=== PATIENT | female | born 1940 | race Caucasian/White ===

== ENCOUNTER 2023-06-02 15:10 | Inpatient (IN) | payer MEDICARE, BC ==
[~2023-06-02] VITALS: Ht 160 cm; Wt 47.6 kg
[2023-06-02] MEDS ORDERED: MEMA10TA PO (15:39)
[2023-06-02] MEDS ORDERED: AMLO-212 PO (15:39)
[2023-06-02] MEDS ORDERED: EZET10TA15 PO (15:39)
[2023-06-02] MEDS ORDERED: ONDANSETRON 4 MG/2 ML VIAL IV ONE (15:45)
[2023-06-02] MEDS ORDERED: IV NORMAL SALINE 500 ML BAG IV ONE (15:45)
[2023-06-02] MEDS ORDERED: MORPHINE SULFATE 2 MG/1 ML DISP.SYRIN IV ONE (15:45)
[2023-06-02] MEDS ORDERED: MORPHINE SULFATE 4 MG/1 ML DISP.SYRIN ONE (16:01)
[2023-06-02] MEDS ORDERED: ONDANSETRON 4 MG/2 ML VIAL ONE (16:01)
[2023-06-02 16:07] LABS: BASOPHILS % (AUTO) 0.3 % (0.0-2.0); EOSINOPHILS % (AUTO) 0.3 % (0.0-7.0); HEMATOCRIT 40.7 % (31.2-41.9); HEMOGLOBIN 13.4 g/dL (10.9-14.3); LYMPHOCYTES # (AUTO) 1.1 K/uL (0.8-4.8); MEAN CORPUSCULAR HEMOGLOBIN 30.6 uug (24.7-32.8); MEAN CORPUSCULAR HGB CONC 33 g/dL (32.3-35.6); MEAN CORPUSCULAR VOLUME 93.1 fL (75.5-95.3); MONOCYTES # (AUTO) 0.8 K/uL (0.1-1.30); MONOCYTES % (AUTO) 5.4 % (0.0-11.0); NEUTROPHILS # (AUTO) 13.5 K/uL (1.8-8.9); PLATELET COUNT (AUTO) 253 K/uL (179-408); RED BLOOD CELL COUNT(AUTO) 4.37 MIL/uL (3.63-4.92); RED CELL DISTRIBUTION WIDTH 14.2 % (12.3-17.7); WHITE BLOOD COUNT (AUTO) 15.5 K/uL (3.8-11.8)
[2023-06-02 16:18] LABS: DIFFERENTIAL COMMENT 1
[2023-06-02 16:25] LABS: CALCIUM 10.1 mg/dL (8.5-10.1); CREATININE 0.9 mg/dL (0.6-1.3); POTASSIUM 3.5 mmol/L (3.5-5.1)
[2023-06-02 16:51] LABS: *BILIRUBIN,URIN NEGATIVE (NEGATIVE); *BLOOD, URINE NEGATIVE (NEGATIVE); *CLARITY,URINE CLEAR (CLEAR); *COLOR,URINE YELLOW (YELLOW); *PROTEIN,URINE NEGATIVE (NEGATIVE); PH,URINE 7.5 (5.0-8.0); UGLUCOSE NEGATIVE (NEGATIVE)
[2023-06-02 16:52] LABS: *KETONES,URINE NEGATIVE (NEGATIVE); *UROBILINOGEN,URINE 0.2 E.U./dl (NORMAL); LEUKOCYTE ESTERASE ,URINE 1+ (NEGATIVE); NITRITE, URINE NEGATIVE (NEGATIVE)
[2023-06-02 17:29] LABS: RBC,URINE 0-3 /HPF (0-3)
[2023-06-02 17:50] LABS: ALBUMIN 3.8 g/dL (3.4-5.0); BILIRUBIN,DIRECT 0.1 mg/dL (0.0-0.2); BILIRUBIN,TOTAL 0.3 mg/dL (0.2-1.0); TOTAL PROTEIN, SERUM 7.1 g/dL (6.4-8.2)
[2023-06-02] MEDS: CEFTRIAXONE 1 G in IV DEXTROSE 5% 50 ML IV SCH (19:30)
[2023-06-02] MEDS ORDERED: ONDANSETRON 4 MG/2 ML VIAL IV PRN (19:30)
[2023-06-02] MEDS ORDERED: ACETAMINOPHEN 650 MG SUPP.RECT RC PRN (19:30)
[2023-06-02 20:00] VITALS: BP 107/56; TEMP 97.5; O2SAT 95
[2023-06-02] MEDS ORDERED: CEFTRIAXONE /D5W 50ML IVPB **ER PYXIS IV ONE (20:27)
[2023-06-02] MEDS ORDERED: IV D5W-0.45% NS +20 KCL 1,000 ML IV ONE (20:28)
[2023-06-02] MEDS: ENOXAPARIN SODIUM 40 MG/0.4 ML DISP.SYRIN SQ SCH (21:45)
[2023-06-02] MEDS: POTASSIUM CHLORIDE 20 MEQ in IV D5 1/2 NS 1000 ML 1,000 ML IV PRN (21:48)
[2023-06-02] MEDS: MORPHINE SULFATE 4 MG/1 ML DISP.SYRIN IV PRN (22:02)
[2023-06-03 04:00] VITALS: BP 123/66; TEMP 97.7; O2SAT 97
[2023-06-03 07:40] LABS: BASOPHILS % (AUTO) 0.2 % (0.0-2.0); EOSINOPHILS % (AUTO) 0.1 % (0.0-7.0); HEMOGLOBIN 11.5 g/dL (10.9-14.3); LYMPHOCYTES % (AUTO) 7.9 % (20.5-51.5); MEAN CORPUSCULAR HEMOGLOBIN 31.2 uug (24.7-32.8); MEAN CORPUSCULAR HGB CONC 34 g/dL (32.3-35.6); MEAN CORPUSCULAR VOLUME 92.6 fL (75.5-95.3); MONOCYTES # (AUTO) 0.8 K/uL (0.1-1.30); MONOCYTES % (AUTO) 6.7 % (0.0-11.0); NEUTROPHILS # (AUTO) 10.2 K/uL (1.8-8.9); NEUTROPHILS % (AUTO) 85.1 % (38.5-71.5); PLATELET COUNT (AUTO) 224 K/uL (179-408); RED BLOOD CELL COUNT(AUTO) 3.67 MIL/uL (3.63-4.92); RED CELL DISTRIBUTION WIDTH 14.1 % (12.3-17.7)
[2023-06-03 07:53] LABS: DIFFERENTIAL COMMENT 1
[2023-06-03 07:59] LABS: THYROID STIMULATING HORMONE 0.523 mIU/mL (0.358-3.740)
[2023-06-03 08:13] LABS: ALBUMIN 3.3 g/dL (3.4-5.0); BILIRUBIN,TOTAL 0.5 mg/dL (0.2-1.0); CALCIUM 8.5 mg/dL (8.5-10.1); CREATININE 0.6 mg/dL (0.6-1.3); MAGNESIUM 2.3 mg/dL (1.8-2.4); POTASSIUM 3.8 mmol/L (3.5-5.1); TOTAL PROTEIN, SERUM 6.5 g/dL (6.4-8.2)
[2023-06-03] MEDS: PANTOPRAZOLE SODIUM 40 MG VIAL IV SCH (08:47)
[2023-06-03] MEDS: POTASSIUM CHLORIDE 20 MEQ in IV D5 1/2 NS 1000 ML 1,000 ML IV PRN (10:53)
[2023-06-03 11:34] VITALS: BP 130/57; TEMP 98.8; O2SAT 95
[2023-06-03] MEDS: DOCUSATE SODIUM 100 MG CAPSULE PO SCH ×2 (12:50→21:43)
[2023-06-03 15:38] VITALS: BP 139/70; TEMP 98.7; O2SAT 95
[2023-06-03] MEDS: MORPHINE SULFATE 4 MG/1 ML DISP.SYRIN IV PRN (17:58)
[2023-06-03 20:00] VITALS: BP 142/74; TEMP 98.6; O2SAT 96
[2023-06-03] MEDS: CEFTRIAXONE 1 G in IV DEXTROSE 5% 50 ML IV SCH (20:10)
[2023-06-03] MEDS: ENOXAPARIN SODIUM 40 MG/0.4 ML DISP.SYRIN SQ SCH (21:44)
[2023-06-04] VITALS (8 sets, daily range): BP systolic 90–151; BP diastolic 47–77; TEMP 96.7–98.2; O2SAT 94–99
[2023-06-04] MEDS: POTASSIUM CHLORIDE 20 MEQ in IV D5 1/2 NS 1000 ML 1,000 ML IV PRN ×2 (01:12→17:57)
[2023-06-04] MEDS ORDERED: BISACODYL 10 MG SUPP.RECT RC PRN (05:15)
[2023-06-04] MEDS: DOCUSATE SODIUM 100 MG CAPSULE PO SCH ×2 (09:00→20:18)
[2023-06-04] MEDS: PANTOPRAZOLE SODIUM 40 MG VIAL IV SCH (09:43)
[2023-06-04] MEDS ORDERED: FENTANYL CITRATE 250 MCG/5 ML AMPUL ONE (12:56)
[2023-06-04] MEDS ORDERED: ROCURONIUM BROMIDE 50 MG/5 ML VIAL ONE (12:56)
[2023-06-04] MEDS ORDERED: BUPIVACAINE 0.25% 30 ML VIAL ONE (12:57)
[2023-06-04] MEDS ORDERED: METOCLOPRAMIDE HCL 10 MG/2 ML VIAL ONE (13:46)
[2023-06-04] MEDS ORDERED: GLYCOPYRROLATE 0.4 MG/2 ML VIAL ONE (13:46)
[2023-06-04] MEDS ORDERED: CEFAZOLIN 1 G VIAL ONE (13:46)
[2023-06-04] MEDS ORDERED: ONDANSETRON 4 MG/2 ML VIAL ONE ×2 (13:46→15:35)
[2023-06-04] MEDS ORDERED: LIDOCAINE-MPF 2% 5 ML VIAL ONE (13:46)
[2023-06-04] MEDS ORDERED: PROPOFOL 200 MG/20 ML BOTTLE ONE (13:46)
[2023-06-04] MEDS ORDERED: NEOSTIGMINE METHYLSULFATE 10 MG/10 ML VIAL ONE (13:46)
[2023-06-04] MEDS ORDERED: VANCOMYCIN 1000 MG VIAL ONE (14:13)
[2023-06-04] MEDS ORDERED: HYDROCODONE/APAP 10-325 MG TABLET PO PRN (15:30)
[2023-06-04] MEDS ORDERED: HYDROMORPHONE 1 MG/1 ML DISP.SYRIN ONE (15:36)
[2023-06-04] MEDS: CEFAZOLIN 1 G in IV DEXTROSE 5% 50 ML IV SCH (21:22)
[2023-06-05 00:13] VITALS: BP 105/60; TEMP 97.6; O2SAT 97
[2023-06-05] MEDS: MORPHINE SULFATE 4 MG/1 ML DISP.SYRIN IV PRN ×2 (03:23→09:21)
[2023-06-05 04:11] VITALS: BP 104/55; TEMP 97.9; O2SAT 93
[2023-06-05 04:24] VITALS: BP 104/55; TEMP 97.9; O2SAT 95
[2023-06-05] MEDS: CEFAZOLIN 1 G in IV DEXTROSE 5% 50 ML IV SCH ×2 (05:49→13:57)
[2023-06-05 07:50] LABS: BASOPHILS % (AUTO) 0.2 % (0.0-2.0); EOSINOPHILS # (AUTO) 0.1 K/uL (0.0-0.7); EOSINOPHILS % (AUTO) 0.4 % (0.0-7.0); HEMATOCRIT 32.6 % (31.2-41.9); HEMOGLOBIN 10.8 g/dL (10.9-14.3); LYMPHOCYTES # (AUTO) 1.2 K/uL (0.8-4.8); LYMPHOCYTES % (AUTO) 10.3 % (20.5-51.5); MEAN CORPUSCULAR HEMOGLOBIN 31.2 uug (24.7-32.8); MEAN CORPUSCULAR HGB CONC 33 g/dL (32.3-35.6); MEAN CORPUSCULAR VOLUME 93.9 fL (75.5-95.3); MONOCYTES % (AUTO) 8.7 % (0.0-11.0); NEUTROPHILS # (AUTO) 9.5 K/uL (1.8-8.9); NEUTROPHILS % (AUTO) 80.4 % (38.5-71.5); PLATELET COUNT (AUTO) 197 K/uL (179-408); RED BLOOD CELL COUNT(AUTO) 3.47 MIL/uL (3.63-4.92); RED CELL DISTRIBUTION WIDTH 13.8 % (12.3-17.7); WHITE BLOOD COUNT (AUTO) 11.8 K/uL (3.8-11.8)
[2023-06-05 07:55] LABS: DIFFERENTIAL COMMENT 1
[2023-06-05 08:11] LABS: CALCIUM 8.5 mg/dL (8.5-10.1); CARBON DIOXIDE 26 mmol/L (21-32); CHLORIDE 102 mmol/L (98-107); CREATININE 0.7 mg/dL (0.6-1.3); GLUCOSE 104 mg/dL (74-106); MAGNESIUM 2.2 mg/dL (1.8-2.4); PHOSPHOROUS 2.7 mg/dL (2.5-4.9); POTASSIUM 4.4 mmol/L (3.5-5.1); SODIUM SERUM 137 mmol/L (136-145); UREA NITROGEN, BLOOD 11 mg/dL (7-18)
[2023-06-05] MEDS: DOCUSATE SODIUM 100 MG CAPSULE PO SCH (09:20)
[2023-06-05] MEDS: PANTOPRAZOLE SODIUM 40 MG VIAL IV SCH (09:20)
[2023-06-05] MEDS: POTASSIUM CHLORIDE 20 MEQ in IV D5 1/2 NS 1000 ML 1,000 ML IV PRN (09:22)
[2023-06-05 11:30] VITALS: BP 109/54; TEMP 98.4; O2SAT 96
[2023-06-05] MEDS ORDERED: MEMANTINE HCL 10 MG TABLET PO SCH (11:30)
[2023-06-05] MEDS ORDERED: BISA10SU95 RC (17:58)
[2023-06-05] MEDS ORDERED: ACET650S13 RC (17:58)
[2023-06-05] MEDS ORDERED: MORP4CAR IV (17:58)
[2023-06-05] MEDS ORDERED: DOCU100T2 PO (17:58)
[2023-06-05] MEDS ORDERED: PANT40TA49 PO (17:58)
[2023-06-05] MEDS ORDERED: HYDR-3980 PO (17:58)
[2023-06-05] MEDS ORDERED: ONDA4VIA23 IJ (17:58)
[2023-06-05] MEDS ORDERED: ENOX40DI SQ (17:58)
[2023-06-05] MEDS ORDERED: ENOXAPARIN SODIUM 40 MG/0.4 ML DISP.SYRIN SQ SCH (21:00)
[2023-06-06] MEDS ORDERED: PANTOPRAZOLE SODIUM 40 MG TABLET.DR PO SCH (07:00)
[2023-06-06] MEDS ORDERED: EZETIMIBE 10 MG TABLET PO SCH (09:00)
[2023-06-06] MEDS ORDERED: AMLODIPINE 5 MG TABLET PO SCH (09:00)
== END 2023-06-05 15:53 | DRG 522 ==
LOC: ER 15:10 → MEDSURG3 17:53 → TELE3 06-03 09:04
PROVIDERS: ADMIT Internal Medicine; ATTEND Internal Medicine
PROC: 0SRR0JA Replacement of Right Hip Joint, Femoral Surface with Synthetic Substitute, Uncemented, Open Approach (ICD-10-PCS; principal; 2023-06-04)
DX: M80.051A Age-related osteoporosis with current pathological fracture, right femur, initial encounter for fracture (principal); N39.0 Urinary tract infection, site not specified; Z68.1 Body mass index [BMI] 19.9 or less, adult; F03.A0 Unspecified dementia, mild, without behavioral disturbance, psychotic disturbance, mood disturbance, and anxiety; I70.0 Atherosclerosis of aorta; M19.011 Primary osteoarthritis, right shoulder; G89.11 Acute pain due to trauma; E78.5 Hyperlipidemia, unspecified; I10 Essential (primary) hypertension; M51.36 Other intervertebral disc degeneration, lumbar region; R63.6 Underweight; W01.0XXA Fall on same level from slipping, tripping and stumbling without subsequent striking against object, initial encounter; Y92.009 Unspecified place in unspecified non-institutional (private) residence as the place of occurrence of the external cause; Z88.2 Allergy status to sulfonamides; E11.9 Type 2 diabetes mellitus without complications; E78.00 Pure hypercholesterolemia, unspecified; Z98.49 Cataract extraction status, unspecified eye; Z79.899 Other long term (current) drug therapy
CPT/HCPCS: 36415; 71045; 72170; 73501; 73502; 83550; 83735; 84100; 84443; 84484; 85025; 85730; 93005; 93307; A4649; A4663; C9113; G0378; J0690; J0696; J1170; J1650; J2270; J2405; J2765; J3010; J3370; J3480; J3490; J7040

== ENCOUNTER 2023-06-05 16:14 | Inpatient (IN) | payer MEDICARE, BC ==
[~2023-06-05] VITALS: Ht 160 cm; Wt 47.6 kg
[~2023-06-05 16:14] MED LIST: AMLO-212 PO; EZET10TA15 PO; MEMA10TA PO
[2023-06-05 16:30] VITALS: BP 113/56; TEMP 98.6; O2SAT 96
[2023-06-05] MEDS: NITROFURANTOIN/NITROFURAN MAC 100 MG CAPSULE PO SCH (17:53)
[2023-06-05] MEDS ORDERED: BISA10SU95 RC (17:58)
[2023-06-05] MEDS ORDERED: MORP4CAR IV (17:58)
[2023-06-05] MEDS ORDERED: ONDA4VIA23 IJ (17:58)
[2023-06-05] MEDS ORDERED: HYDR-3980 PO (17:58)
[2023-06-05] MEDS ORDERED: DOCU100T2 PO (17:58)
[2023-06-05] MEDS ORDERED: ACET650S13 RC (17:58)
[2023-06-05] MEDS ORDERED: ENOX40DI SQ (17:58)
[2023-06-05] MEDS ORDERED: PANT40TA49 PO (17:58)
[2023-06-05] MEDS ORDERED: MORPHINE SULFATE 4 MG/1 ML DISP.SYRIN IV PRN (18:00)
[2023-06-05] MEDS ORDERED: ACETAMINOPHEN 650 MG SUPP.RECT RC PRN (18:00)
[2023-06-05] MEDS: HYDROCODONE/APAP 10-325 MG TABLET PO PRN (18:10)
[2023-06-05] MEDS: DOCUSATE SODIUM 100 MG CAPSULE PO SCH (20:41)
[2023-06-05] MEDS: ENOXAPARIN SODIUM 40 MG/0.4 ML DISP.SYRIN SQ SCH (20:43)
[2023-06-05 21:01] VITALS: BP 113/66; TEMP 98.1; O2SAT 97
[2023-06-06 00:59] VITALS: BP 95/54; TEMP 97.6; O2SAT 94
[2023-06-06] MEDS: HYDROCODONE/APAP 10-325 MG TABLET PO PRN (03:23)
[2023-06-06 05:09] VITALS: BP 114/61; TEMP 98.5; O2SAT 97
[2023-06-06] MEDS: PANTOPRAZOLE SODIUM 40 MG TABLET.DR PO SCH (06:49)
[2023-06-06] MEDS: DOCUSATE SODIUM 100 MG CAPSULE PO SCH ×2 (08:05→20:08)
[2023-06-06] MEDS: NITROFURANTOIN/NITROFURAN MAC 100 MG CAPSULE PO SCH ×2 (08:05→17:08)
[2023-06-06] MEDS: EZETIMIBE 10 MG TABLET PO SCH (08:11)
[2023-06-06] MEDS: MEMANTINE HCL 10 MG TABLET PO SCH (08:11)
[2023-06-06] MEDS: AMLODIPINE 5 MG TABLET PO SCH (08:12)
[2023-06-06 11:30] VITALS: BP 121/63; TEMP 97.5; O2SAT 100
[2023-06-06 12:13] VITALS: BP 121/63; TEMP 97.5; O2SAT 100
[2023-06-06] MEDS: ENSURE ENLIVE (VAN) 240 ML LIQUID PO SCH (16:05)
[2023-06-06 16:39] VITALS: BP 124/60; TEMP 98; O2SAT 100
[2023-06-06 20:00] VITALS: BP 137/68; TEMP 97.3; O2SAT 100
[2023-06-06] MEDS: ENOXAPARIN SODIUM 40 MG/0.4 ML DISP.SYRIN SQ SCH (20:09)
[2023-06-07 04:00] VITALS: BP 122/65; TEMP 98.7; O2SAT 100
[2023-06-07] MEDS: PANTOPRAZOLE SODIUM 40 MG TABLET.DR PO SCH (06:30)
[2023-06-07 07:23] VITALS: BP 134/66; TEMP 98.4; O2SAT 100
[2023-06-07] MEDS: EZETIMIBE 10 MG TABLET PO SCH (08:41)
[2023-06-07] MEDS: DOCUSATE SODIUM 100 MG CAPSULE PO SCH ×2 (08:41→20:33)
[2023-06-07] MEDS: MEMANTINE HCL 10 MG TABLET PO SCH (08:41)
[2023-06-07] MEDS: NITROFURANTOIN/NITROFURAN MAC 100 MG CAPSULE PO SCH ×2 (08:41→18:21)
[2023-06-07] MEDS: AMLODIPINE 5 MG TABLET PO SCH (08:44)
[2023-06-07] MEDS: ENSURE ENLIVE (VAN) 240 ML LIQUID PO SCH ×3 (08:45→17:03)
[2023-06-07 15:09] VITALS: BP 132/65; TEMP 98.2; O2SAT 100
[2023-06-07] MEDS: ENOXAPARIN SODIUM 40 MG/0.4 ML DISP.SYRIN SQ SCH (20:33)
[2023-06-07 20:53] VITALS: BP 117/69; TEMP 98.4; O2SAT 99
[2023-06-07 20:56] VITALS: O2SAT 98
[2023-06-07] MEDS: HYDROCODONE/APAP 10-325 MG TABLET PO PRN (22:25)
[2023-06-07 22:49] VITALS: O2SAT 98
[2023-06-08] MEDS: BISACODYL 10 MG SUPP.RECT RC PRN (03:24)
[2023-06-08 05:20] VITALS: BP 110/51; TEMP 98.2; O2SAT 99
[2023-06-08] MEDS: PANTOPRAZOLE SODIUM 40 MG TABLET.DR PO SCH (06:38)
[2023-06-08 06:52] LABS: BASOPHILS # (AUTO) 0.1 K/UL (0.0-0.2); BASOPHILS % (AUTO) 0.7 % (0.0-2.0); EOSINOPHILS # (AUTO) 0.1 K/uL (0.0-0.7); EOSINOPHILS % (AUTO) 1.8 % (0.0-7.0); HEMATOCRIT 28.3 % (31.2-41.9); HEMOGLOBIN 9.4 g/dL (10.9-14.3); LYMPHOCYTES # (AUTO) 1.2 K/uL (0.8-4.8); MEAN CORPUSCULAR HEMOGLOBIN 31.1 uug (24.7-32.8); MEAN CORPUSCULAR HGB CONC 33 g/dL (32.3-35.6); MEAN CORPUSCULAR VOLUME 93.2 fL (75.5-95.3); MONOCYTES # (AUTO) 0.9 K/uL (0.1-1.30); NEUTROPHILS # (AUTO) 5.5 K/uL (1.8-8.9); NEUTROPHILS % (AUTO) 70.5 % (38.5-71.5); PLATELET COUNT (AUTO) 267 K/uL (179-408); RED BLOOD CELL COUNT(AUTO) 3.03 MIL/uL (3.63-4.92); RED CELL DISTRIBUTION WIDTH 13.3 % (12.3-17.7); WHITE BLOOD COUNT (AUTO) 7.8 K/uL (3.8-11.8)
[2023-06-08 07:06] LABS: DIFFERENTIAL COMMENT 1
[2023-06-08 07:07] LABS: CALCIUM 9.1 mg/dL (8.5-10.1); CARBON DIOXIDE 29 mmol/L (21-32); CHLORIDE 99 mmol/L (98-107); CREATININE 0.5 mg/dL (0.6-1.3); GLUCOSE 112 mg/dL (74-106); MAGNESIUM 2.4 mg/dL (1.8-2.4); PHOSPHOROUS 3.6 mg/dL (2.5-4.9); POTASSIUM 4.2 mmol/L (3.5-5.1); SODIUM SERUM 136 mmol/L (136-145); UREA NITROGEN, BLOOD 17 mg/dL (7-18)
[2023-06-08 07:40] VITALS: BP 130/72; TEMP 97.9; O2SAT 100
[2023-06-08 08:10] VITALS: O2SAT 99
[2023-06-08] MEDS: EZETIMIBE 10 MG TABLET PO SCH (08:24)
[2023-06-08] MEDS: AMLODIPINE 5 MG TABLET PO SCH (08:24)
[2023-06-08] MEDS: DOCUSATE SODIUM 100 MG CAPSULE PO SCH ×2 (08:24→20:19)
[2023-06-08] MEDS: MEMANTINE HCL 10 MG TABLET PO SCH (08:25)
[2023-06-08] MEDS: NITROFURANTOIN/NITROFURAN MAC 100 MG CAPSULE PO SCH ×2 (08:25→18:10)
[2023-06-08] MEDS: ENSURE ENLIVE (VAN) 240 ML LIQUID PO SCH ×3 (08:25→17:23)
[2023-06-08] MEDS: HYDROCODONE/APAP 10-325 MG TABLET PO PRN (10:21)
[2023-06-08 16:00] VITALS: BP 113/60; TEMP 98.3; O2SAT 99
[2023-06-08 20:05] VITALS: BP 132/65; TEMP 97.5; O2SAT 99
[2023-06-08] MEDS: ENOXAPARIN SODIUM 40 MG/0.4 ML DISP.SYRIN SQ SCH (20:19)
[2023-06-08 20:26] VITALS: O2SAT 99
[2023-06-09] MEDS: PANTOPRAZOLE SODIUM 40 MG TABLET.DR PO SCH (06:06)
[2023-06-09 06:44] VITALS: BP 120/66; TEMP 98.4; O2SAT 100
[2023-06-09 07:40] VITALS: BP 129/71; TEMP 98.5; O2SAT 99
[2023-06-09] MEDS: MEMANTINE HCL 10 MG TABLET PO SCH (08:04)
[2023-06-09] MEDS: DOCUSATE SODIUM 100 MG CAPSULE PO SCH ×2 (08:04→20:59)
[2023-06-09] MEDS: NITROFURANTOIN/NITROFURAN MAC 100 MG CAPSULE PO SCH ×2 (08:04→17:34)
[2023-06-09] MEDS: AMLODIPINE 5 MG TABLET PO SCH (08:05)
[2023-06-09] MEDS: EZETIMIBE 10 MG TABLET PO SCH (08:05)
[2023-06-09] MEDS: ENSURE ENLIVE (VAN) 240 ML LIQUID PO SCH ×3 (08:11→17:34)
[2023-06-09] MEDS: HYDROCODONE/APAP 10-325 MG TABLET PO PRN (08:39)
[2023-06-09 14:51] VITALS: O2SAT 99
[2023-06-09 15:43] VITALS: BP 120/61; TEMP 98.2; O2SAT 100
[2023-06-09 20:00] VITALS: BP 113/62; TEMP 97.6; O2SAT 97
[2023-06-09] MEDS: ENOXAPARIN SODIUM 40 MG/0.4 ML DISP.SYRIN SQ SCH (20:58)
[2023-06-10 02:45] VITALS: O2SAT 99
[2023-06-10 04:00] VITALS: BP 115/61; TEMP 98.6; O2SAT 99
[2023-06-10] MEDS: PANTOPRAZOLE SODIUM 40 MG TABLET.DR PO SCH (06:57)
[2023-06-10] MEDS: BISACODYL 10 MG SUPP.RECT RC PRN (06:58)
[2023-06-10 08:01] VITALS: BP 127/64; TEMP 98; O2SAT 100
[2023-06-10] MEDS: EZETIMIBE 10 MG TABLET PO SCH (08:18)
[2023-06-10] MEDS: MEMANTINE HCL 10 MG TABLET PO SCH (08:19)
[2023-06-10] MEDS: AMLODIPINE 5 MG TABLET PO SCH (08:19)
[2023-06-10] MEDS: HYDROCODONE/APAP 10-325 MG TABLET PO PRN ×2 (08:19→14:48)
[2023-06-10] MEDS: ENSURE ENLIVE (VAN) 240 ML LIQUID PO SCH ×3 (08:20→17:02)
[2023-06-10] MEDS: NITROFURANTOIN/NITROFURAN MAC 100 MG CAPSULE PO SCH (08:20)
[2023-06-10] MEDS: DOCUSATE SODIUM 100 MG CAPSULE PO SCH ×2 (08:20→22:52)
[2023-06-10 13:22] VITALS: O2SAT 99
[2023-06-10 15:30] VITALS: BP 111/55; TEMP 97.8; O2SAT 98
[2023-06-10 20:00] VITALS: BP 116/66; TEMP 98; O2SAT 99
[2023-06-10] MEDS: ENOXAPARIN SODIUM 40 MG/0.4 ML DISP.SYRIN SQ SCH (22:52)
[2023-06-11] VITALS (7 sets, daily range): BP systolic 107–120; BP diastolic 52–59; TEMP 97.8–98.6; O2SAT 95–100
[2023-06-11] MEDS: PANTOPRAZOLE SODIUM 40 MG TABLET.DR PO SCH (06:27)
[2023-06-11] MEDS: DOCUSATE SODIUM 100 MG CAPSULE PO SCH ×2 (08:44→20:16)
[2023-06-11] MEDS: AMLODIPINE 5 MG TABLET PO SCH (08:45)
[2023-06-11] MEDS: EZETIMIBE 10 MG TABLET PO SCH (08:45)
[2023-06-11] MEDS: HYDROCODONE/APAP 10-325 MG TABLET PO PRN (08:45)
[2023-06-11] MEDS: MEMANTINE HCL 10 MG TABLET PO SCH (08:45)
[2023-06-11] MEDS: ENSURE ENLIVE (VAN) 240 ML LIQUID PO SCH ×3 (08:49→17:08)
[2023-06-11] MEDS: BISACODYL 10 MG SUPP.RECT RC PRN (11:05)
[2023-06-11] MEDS: ENOXAPARIN SODIUM 40 MG/0.4 ML DISP.SYRIN SQ SCH (20:18)
[2023-06-11] MEDS: ONDANSETRON 4 MG/2 ML VIAL IV PRN (22:33)
[2023-06-12 04:00] VITALS: BP 118/71; TEMP 97.9; O2SAT 94
[2023-06-12] MEDS: PANTOPRAZOLE SODIUM 40 MG TABLET.DR PO SCH (06:37)
[2023-06-12 08:15] VITALS: BP 122/63; TEMP 97.7; O2SAT 97
[2023-06-12] MEDS: DOCUSATE SODIUM 100 MG CAPSULE PO SCH ×2 (08:18→20:44)
[2023-06-12] MEDS: EZETIMIBE 10 MG TABLET PO SCH (08:18)
[2023-06-12] MEDS: AMLODIPINE 5 MG TABLET PO SCH (08:18)
[2023-06-12] MEDS: MEMANTINE HCL 10 MG TABLET PO SCH (08:18)
[2023-06-12] MEDS: OXYCODONE HCL 5 MG TABLET PO SCH ×2 (08:19→13:17)
[2023-06-12] MEDS: ENSURE ENLIVE (VAN) 240 ML LIQUID PO SCH ×3 (08:19→17:10)
[2023-06-12 16:29] VITALS: BP 109/60; TEMP 97.6; O2SAT 99
[2023-06-12 17:33] VITALS: O2SAT 99
[2023-06-12 20:06] VITALS: BP 111/56; TEMP 98.7; O2SAT 96
[2023-06-12 20:45] VITALS: O2SAT 99
[2023-06-12] MEDS: ENOXAPARIN SODIUM 40 MG/0.4 ML DISP.SYRIN SQ SCH (20:46)
[2023-06-13 04:15] VITALS: BP 135/64; TEMP 98.5; O2SAT 97
[2023-06-13] MEDS: PANTOPRAZOLE SODIUM 40 MG TABLET.DR PO SCH (06:54)
[2023-06-13 07:35] VITALS: BP 135/66; TEMP 97.2; O2SAT 98
[2023-06-13 08:00] VITALS: BP 135/66; TEMP 97.2; O2SAT 98
[2023-06-13] MEDS: DOCUSATE SODIUM 100 MG CAPSULE PO SCH ×2 (08:16→20:35)
[2023-06-13] MEDS: ENSURE ENLIVE (VAN) 240 ML LIQUID PO SCH ×3 (08:17→16:28)
[2023-06-13] MEDS: EZETIMIBE 10 MG TABLET PO SCH (08:17)
[2023-06-13] MEDS: AMLODIPINE 5 MG TABLET PO SCH (08:17)
[2023-06-13] MEDS: OXYCODONE HCL 5 MG TABLET PO SCH ×2 (08:17→12:45)
[2023-06-13] MEDS: MEMANTINE HCL 10 MG TABLET PO SCH (08:17)
[2023-06-13 16:00] VITALS: BP 109/84; TEMP 97.6; O2SAT 97
[2023-06-13 20:25] VITALS: BP 114/58; TEMP 98.5; O2SAT 98
[2023-06-13] MEDS: ENOXAPARIN SODIUM 40 MG/0.4 ML DISP.SYRIN SQ SCH (20:36)
[2023-06-13] MEDS: HYDROCODONE/APAP 10-325 MG TABLET PO PRN (21:12)
[2023-06-14 04:10] VITALS: BP 123/67; TEMP 97.9; O2SAT 99
[2023-06-14] MEDS: PANTOPRAZOLE SODIUM 40 MG TABLET.DR PO SCH (06:04)
[2023-06-14 06:26] LABS: BASOPHILS # (AUTO) 0.1 K/UL (0.0-0.2); BASOPHILS % (AUTO) 0.5 % (0.0-2.0); EOSINOPHILS # (AUTO) 0.1 K/uL (0.0-0.7); EOSINOPHILS % (AUTO) 0.7 % (0.0-7.0); HEMATOCRIT 29.7 % (31.2-41.9); HEMOGLOBIN 9.8 g/dL (10.9-14.3); LYMPHOCYTES # (AUTO) 1.6 K/uL (0.8-4.8); LYMPHOCYTES % (AUTO) 10.2 % (20.5-51.5); MEAN CORPUSCULAR HEMOGLOBIN 30.8 uug (24.7-32.8); MEAN CORPUSCULAR HGB CONC 33 g/dL (32.3-35.6); MEAN CORPUSCULAR VOLUME 92.9 fL (75.5-95.3); MONOCYTES # (AUTO) 1.1 K/uL (0.1-1.30); MONOCYTES % (AUTO) 6.8 % (0.0-11.0); NEUTROPHILS # (AUTO) 12.8 K/uL (1.8-8.9); NEUTROPHILS % (AUTO) 81.8 % (38.5-71.5); PLATELET COUNT (AUTO) 441 K/uL (179-408); RED BLOOD CELL COUNT(AUTO) 3.19 MIL/uL (3.63-4.92); WHITE BLOOD COUNT (AUTO) 15.7 K/uL (3.8-11.8)
[2023-06-14 06:32] LABS: DIFFERENTIAL COMMENT 1
[2023-06-14 06:45] LABS: ALANINE AMINOTRANSFERASE 23 U/L (14-59); ALBUMIN 2.4 g/dL (3.4-5.0); ALKALINE PHOSPHATASE 75 U/L (50-136); ASPARTATE AMINOTRANSFERASE 16 U/L (15-37); BILIRUBIN,TOTAL 0.5 mg/dL (0.2-1.0); CARBON DIOXIDE 29 mmol/L (21-32); CHLORIDE 99 mmol/L (98-107); CREATININE 0.6 mg/dL (0.6-1.3); GLUCOSE 105 mg/dL (74-106); MAGNESIUM 2.2 mg/dL (1.8-2.4); PHOSPHOROUS 3.6 mg/dL (2.5-4.9); SODIUM SERUM 135 mmol/L (136-145); TOTAL PROTEIN, SERUM 5.9 g/dL (6.4-8.2); UREA NITROGEN, BLOOD 13 mg/dL (7-18)
[2023-06-14 07:20] LABS: CALCIUM 8.4 mg/dL (8.5-10.1)
[2023-06-14] MEDS: OXYCODONE HCL 5 MG TABLET PO SCH ×2 (07:42→12:28)
[2023-06-14 07:51] VITALS: BP 114/60; TEMP 97.8; O2SAT 98
[2023-06-14] MEDS: AMLODIPINE 5 MG TABLET PO SCH (08:00)
[2023-06-14] MEDS: DOCUSATE SODIUM 100 MG CAPSULE PO SCH ×2 (08:00→20:15)
[2023-06-14] MEDS: EZETIMIBE 10 MG TABLET PO SCH (08:00)
[2023-06-14] MEDS: ENSURE ENLIVE (VAN) 240 ML LIQUID PO SCH ×3 (08:00→16:38)
[2023-06-14] MEDS: MEMANTINE HCL 10 MG TABLET PO SCH (08:00)
[2023-06-14 15:04] VITALS: BP 158/83; TEMP 98.4; O2SAT 98
[2023-06-14 17:46] LABS: *BILIRUBIN,URIN NEGATIVE (NEGATIVE); *CLARITY,URINE CLEAR (CLEAR); *COLOR,URINE YELLOW (YELLOW); *KETONES,URINE TRACE (NEGATIVE); *PROTEIN,URINE 1+ (NEGATIVE); LEUKOCYTE ESTERASE ,URINE 3+ (NEGATIVE); NITRITE, URINE NEGATIVE (NEGATIVE); PH,URINE 7.5 (5.0-8.0); UGLUCOSE NEGATIVE (NEGATIVE)
[2023-06-14 17:48] LABS: *BLOOD, URINE TRACE (NEGATIVE)
[2023-06-14 18:14] LABS: BACTERIA,URINE MANY /HPF (NONE SEEN); WBC,URINE 80-100 /HPF (0-3)
[2023-06-14] MEDS: ENOXAPARIN SODIUM 40 MG/0.4 ML DISP.SYRIN SQ SCH (20:15)
[2023-06-14 20:29] VITALS: BP 148/89; TEMP 97.8; O2SAT 98
[2023-06-14] MEDS: CEphaleXIN 500 MG CAPSULE PO SCH (23:15)
[2023-06-14] MEDS: HYDROCODONE/APAP 10-325 MG TABLET PO PRN (23:18)
[2023-06-15 04:43] VITALS: BP 121/64; TEMP 97.8; O2SAT 100
[2023-06-15] MEDS: CEphaleXIN 500 MG CAPSULE PO SCH ×2 (05:28→14:16)
[2023-06-15] MEDS: PANTOPRAZOLE SODIUM 40 MG TABLET.DR PO SCH (06:24)
[2023-06-15 08:00] VITALS: BP 113/54; TEMP 97.8; O2SAT 98
[2023-06-15] MEDS: DOCUSATE SODIUM 100 MG CAPSULE PO SCH ×2 (08:47→21:22)
[2023-06-15] MEDS: OXYCODONE HCL 5 MG TABLET PO SCH ×2 (08:48→12:39)
[2023-06-15] MEDS: MEMANTINE HCL 10 MG TABLET PO SCH (08:48)
[2023-06-15] MEDS: AMLODIPINE 5 MG TABLET PO SCH (08:48)
[2023-06-15] MEDS: EZETIMIBE 10 MG TABLET PO SCH (08:48)
[2023-06-15] MEDS: ENSURE ENLIVE (VAN) 240 ML LIQUID PO SCH ×3 (09:11→16:16)
[2023-06-15 16:00] VITALS: BP 101/55; TEMP 97.9; O2SAT 97
[2023-06-15] MEDS: CEFTRIAXONE 1 G in IV DEXTROSE 5% 50 ML IV SCH (18:19)
[2023-06-15 20:12] VITALS: BP 121/61; TEMP 98.4; O2SAT 95
[2023-06-15] MEDS: ACIDOPHILUS/BULGARICUS CHEW TAB PO SCH (21:20)
[2023-06-15] MEDS: ENOXAPARIN SODIUM 40 MG/0.4 ML DISP.SYRIN SQ SCH (21:21)
[2023-06-16] MEDS: HYDROCODONE/APAP 10-325 MG TABLET PO PRN ×2 (00:13→20:30)
[2023-06-16 04:18] VITALS: BP 116/84; TEMP 97.6; O2SAT 95
[2023-06-16 04:32] VITALS: BP 124/59; TEMP 98.7; O2SAT 96
[2023-06-16] MEDS: PANTOPRAZOLE SODIUM 40 MG TABLET.DR PO SCH (06:17)
[2023-06-16 06:55] LABS: BASOPHILS % (AUTO) 0.2 % (0.0-2.0); EOSINOPHILS # (AUTO) 0.1 K/uL (0.0-0.7); EOSINOPHILS % (AUTO) 0.6 % (0.0-7.0); HEMATOCRIT 30.2 % (31.2-41.9); HEMOGLOBIN 10.1 g/dL (10.9-14.3); LYMPHOCYTES % (AUTO) 8.4 % (20.5-51.5); MEAN CORPUSCULAR HGB CONC 33 g/dL (32.3-35.6); MONOCYTES # (AUTO) 0.7 K/uL (0.1-1.30); MONOCYTES % (AUTO) 5.6 % (0.0-11.0); NEUTROPHILS # (AUTO) 9.9 K/uL (1.8-8.9); NEUTROPHILS % (AUTO) 85.2 % (38.5-71.5); PLATELET COUNT (AUTO) 454 K/uL (179-408); RED BLOOD CELL COUNT(AUTO) 3.25 MIL/uL (3.63-4.92); WHITE BLOOD COUNT (AUTO) 11.7 K/uL (3.8-11.8)
[2023-06-16 07:02] LABS: DIFFERENTIAL COMMENT 1
[2023-06-16 07:08] LABS: CARBON DIOXIDE 30 mmol/L (21-32); CHLORIDE 98 mmol/L (98-107); CREATININE 0.5 mg/dL (0.6-1.3); GLUCOSE 109 mg/dL (74-106); MAGNESIUM 2.3 mg/dL (1.8-2.4); PHOSPHOROUS 3.9 mg/dL (2.5-4.9); POTASSIUM 3.8 mmol/L (3.5-5.1); SODIUM SERUM 135 mmol/L (136-145); UREA NITROGEN, BLOOD 12 mg/dL (7-18)
[2023-06-16] MEDS: DOCUSATE SODIUM 100 MG CAPSULE PO SCH ×2 (08:03→20:28)
[2023-06-16] MEDS: ACIDOPHILUS/BULGARICUS CHEW TAB PO SCH ×2 (08:03→20:28)
[2023-06-16] MEDS: MEMANTINE HCL 10 MG TABLET PO SCH (08:03)
[2023-06-16] MEDS: EZETIMIBE 10 MG TABLET PO SCH (08:03)
[2023-06-16] MEDS: OXYCODONE HCL 5 MG TABLET PO SCH ×2 (08:03→13:00)
[2023-06-16] MEDS: AMLODIPINE 5 MG TABLET PO SCH (08:03)
[2023-06-16 08:12] VITALS: BP 127/63; TEMP 98.9; O2SAT 98
[2023-06-16] MEDS: ENSURE ENLIVE (VAN) 240 ML LIQUID PO SCH ×3 (09:50→16:27)
[2023-06-16 16:15] VITALS: BP 125/66; TEMP 97.8; O2SAT 98
[2023-06-16] MEDS: CEFTRIAXONE 1 G in IV DEXTROSE 5% 50 ML IV SCH (17:06)
[2023-06-16 20:28] VITALS: BP 106/62; TEMP 98.2; O2SAT 97
[2023-06-16] MEDS: ENOXAPARIN SODIUM 40 MG/0.4 ML DISP.SYRIN SQ SCH (20:40)
[2023-06-17 04:30] VITALS: BP 119/59; TEMP 98.1; O2SAT 99
[2023-06-17] MEDS: PANTOPRAZOLE SODIUM 40 MG TABLET.DR PO SCH (06:48)
[2023-06-17 07:33] VITALS: BP 115/62; TEMP 98.2; O2SAT 96
[2023-06-17] MEDS: MEMANTINE HCL 10 MG TABLET PO SCH (08:20)
[2023-06-17] MEDS: ACIDOPHILUS/BULGARICUS CHEW TAB PO SCH ×2 (08:21→21:20)
[2023-06-17] MEDS: ENSURE ENLIVE (VAN) 240 ML LIQUID PO SCH ×3 (08:21→16:18)
[2023-06-17] MEDS: OXYCODONE HCL 5 MG TABLET PO SCH ×2 (08:21→12:34)
[2023-06-17] MEDS: DOCUSATE SODIUM 100 MG CAPSULE PO SCH ×2 (08:21→21:20)
[2023-06-17] MEDS: AMLODIPINE 5 MG TABLET PO SCH (08:21)
[2023-06-17] MEDS: EZETIMIBE 10 MG TABLET PO SCH (08:21)
[2023-06-17 11:07] VITALS: BP 115/66; TEMP 98.2; O2SAT 96
[2023-06-17 15:27] VITALS: BP 116/59; TEMP 98.2; O2SAT 96
[2023-06-17] MEDS: CEFTRIAXONE 1 G in IV DEXTROSE 5% 50 ML IV SCH (17:07)
[2023-06-17 20:00] VITALS: BP 128/61; TEMP 97.8; O2SAT 95
[2023-06-17] MEDS: ENOXAPARIN SODIUM 40 MG/0.4 ML DISP.SYRIN SQ SCH (21:21)
[2023-06-18] MEDS: HYDROCODONE/APAP 10-325 MG TABLET PO PRN (00:01)
[2023-06-18 04:00] VITALS: BP 109/63; TEMP 97.4; O2SAT 96
[2023-06-18] MEDS: PANTOPRAZOLE SODIUM 40 MG TABLET.DR PO SCH (06:47)
[2023-06-18 07:53] VITALS: BP 127/56; TEMP 97.8; O2SAT 95
[2023-06-18] MEDS: ACIDOPHILUS/BULGARICUS CHEW TAB PO SCH ×2 (08:39→20:49)
[2023-06-18] MEDS: DOCUSATE SODIUM 100 MG CAPSULE PO SCH ×2 (08:39→20:49)
[2023-06-18] MEDS: OXYCODONE HCL 5 MG TABLET PO SCH ×2 (08:39→12:28)
[2023-06-18] MEDS: AMLODIPINE 5 MG TABLET PO SCH (08:40)
[2023-06-18] MEDS: EZETIMIBE 10 MG TABLET PO SCH (08:40)
[2023-06-18] MEDS: MEMANTINE HCL 10 MG TABLET PO SCH (08:40)
[2023-06-18] MEDS: ENSURE ENLIVE (VAN) 240 ML LIQUID PO SCH ×3 (08:41→16:16)
[2023-06-18 15:32] VITALS: BP 104/56; TEMP 97.7; O2SAT 100
[2023-06-18] MEDS: ONDANSETRON 4 MG/2 ML VIAL IV PRN (16:15)
[2023-06-18] MEDS: CEFTRIAXONE 1 G in IV DEXTROSE 5% 50 ML IV SCH (17:15)
[2023-06-18 20:00] VITALS: BP 120/64; TEMP 97.6; O2SAT 96
[2023-06-18] MEDS: ENOXAPARIN SODIUM 40 MG/0.4 ML DISP.SYRIN SQ SCH (20:51)
[2023-06-19 04:00] VITALS: BP 118/62; TEMP 99.3; O2SAT 95
[2023-06-19] MEDS: HYDROCODONE/APAP 10-325 MG TABLET PO PRN ×2 (04:26→22:43)
[2023-06-19] MEDS: PANTOPRAZOLE SODIUM 40 MG TABLET.DR PO SCH (06:06)
[2023-06-19 07:42] VITALS: BP 102/57; TEMP 97.7; O2SAT 96
[2023-06-19] MEDS: AMLODIPINE 5 MG TABLET PO SCH (08:51)
[2023-06-19] MEDS: EZETIMIBE 10 MG TABLET PO SCH (08:51)
[2023-06-19] MEDS: MEMANTINE HCL 10 MG TABLET PO SCH (08:52)
[2023-06-19] MEDS: ACIDOPHILUS/BULGARICUS CHEW TAB PO SCH ×2 (08:52→21:01)
[2023-06-19] MEDS: OXYCODONE HCL 5 MG TABLET PO SCH ×2 (08:52→12:40)
[2023-06-19] MEDS: DOCUSATE SODIUM 100 MG CAPSULE PO SCH ×2 (08:52→21:01)
[2023-06-19] MEDS: ENSURE ENLIVE (VAN) 240 ML LIQUID PO SCH ×3 (08:53→17:31)
[2023-06-19 15:31] VITALS: BP 118/62; TEMP 98.2; O2SAT 93
[2023-06-19] MEDS: CEFTRIAXONE 1 G in IV DEXTROSE 5% 50 ML IV SCH (17:15)
[2023-06-19 19:30] VITALS: BP 108/60; TEMP 97.5; O2SAT 94
[2023-06-19 20:00] VITALS: BP 108/60; TEMP 97.5; O2SAT 94
[2023-06-19] MEDS: ENOXAPARIN SODIUM 40 MG/0.4 ML DISP.SYRIN SQ SCH (21:03)
[2023-06-20 04:00] VITALS: BP 116/61; TEMP 98; O2SAT 96
[2023-06-20] MEDS: PANTOPRAZOLE SODIUM 40 MG TABLET.DR PO SCH (06:12)
[2023-06-20 07:56] VITALS: BP 125/65; TEMP 98.3; O2SAT 97
[2023-06-20] MEDS: AMLODIPINE 5 MG TABLET PO SCH (09:12)
[2023-06-20] MEDS: EZETIMIBE 10 MG TABLET PO SCH (09:12)
[2023-06-20] MEDS: OXYCODONE HCL 5 MG TABLET PO SCH ×2 (09:12→12:36)
[2023-06-20] MEDS: MEMANTINE HCL 10 MG TABLET PO SCH (09:12)
[2023-06-20] MEDS: ENSURE ENLIVE (VAN) 240 ML LIQUID PO SCH ×3 (09:13→17:25)
[2023-06-20] MEDS: DOCUSATE SODIUM 100 MG CAPSULE PO SCH ×2 (09:13→21:18)
[2023-06-20] MEDS: ACIDOPHILUS/BULGARICUS CHEW TAB PO SCH ×2 (09:13→21:18)
[2023-06-20] MEDS: levoFLOXacin 250 MG TABLET PO SCH (11:15)
[2023-06-20 16:07] VITALS: BP 109/59; TEMP 97.7; O2SAT 97
[2023-06-20 20:16] VITALS: BP 112/58; TEMP 97.5; O2SAT 97
[2023-06-20] MEDS: ENOXAPARIN SODIUM 40 MG/0.4 ML DISP.SYRIN SQ SCH (21:19)
[2023-06-21 04:38] VITALS: BP 121/67; TEMP 97.6; O2SAT 98
[2023-06-21] MEDS: PANTOPRAZOLE SODIUM 40 MG TABLET.DR PO SCH (05:55)
[2023-06-21 07:53] VITALS: BP 122/67; TEMP 97.7; O2SAT 99
[2023-06-21] MEDS: DOCUSATE SODIUM 100 MG CAPSULE PO SCH (09:10)
[2023-06-21] MEDS: ACIDOPHILUS/BULGARICUS CHEW TAB PO SCH (09:10)
[2023-06-21] MEDS: OXYCODONE HCL 5 MG TABLET PO SCH ×2 (09:10→13:47)
[2023-06-21] MEDS: MEMANTINE HCL 10 MG TABLET PO SCH (09:11)
[2023-06-21] MEDS: EZETIMIBE 10 MG TABLET PO SCH (09:11)
[2023-06-21] MEDS: ENSURE ENLIVE (VAN) 240 ML LIQUID PO SCH ×3 (09:15→17:19)
[2023-06-21] MEDS: AMLODIPINE 5 MG TABLET PO SCH (09:16)
[2023-06-21] MEDS: levoFLOXacin 250 MG TABLET PO SCH (10:13)
[2023-06-21 15:52] VITALS: BP 118/67; TEMP 98.4; O2SAT 98
== END 2023-06-21 16:15 | DRG 559 ==
PROVIDERS: ADMIT Physical Medicine & Rehabilitation Pain Medicine; ATTEND Physical Medicine & Rehabilitation Pain Medicine
PROC: 0HBRXZZ Excision of Toe Nail, External Approach (ICD-10-PCS; principal; 2023-06-19)
DX: Z47.1 Aftercare following joint replacement surgery (principal); E43 Unspecified severe protein-calorie malnutrition; D68.59 Other primary thrombophilia; N39.0 Urinary tract infection, site not specified; Z68.1 Body mass index [BMI] 19.9 or less, adult; Z96.641 Presence of right artificial hip joint; Z91.81 History of falling; E78.5 Hyperlipidemia, unspecified; I10 Essential (primary) hypertension; M19.011 Primary osteoarthritis, right shoulder; B96.89 Other specified bacterial agents as the cause of diseases classified elsewhere; D64.9 Anemia, unspecified; F03.90 Unspecified dementia, unspecified severity, without behavioral disturbance, psychotic disturbance, mood disturbance, and anxiety; L89.629 Pressure ulcer of left heel, unspecified stage; M51.36 Other intervertebral disc degeneration, lumbar region; W01.0XXD Fall on same level from slipping, tripping and stumbling without subsequent striking against object, subsequent encounter; Z88.2 Allergy status to sulfonamides; R26.2 Difficulty in walking, not elsewhere classified; L60.3 Nail dystrophy
CPT/HCPCS: 36415; 71045; 73501; 83735; 84100; 85025; 97535-GO-CO; A6209; A6213; C1758; J0696; J1650; J2270; J2405

== ENCOUNTER 2023-07-05 20:03 | Emergency (ER) | payer MEDICARE, BC ==
[~2023-07-05] VITALS: Ht 165.1 cm; Wt 49.9 kg
[~2023-07-05 20:03] MED LIST changes: +ACET650S13 RC; +BISA10SU95 RC; +DOCU100T2 PO; +ENOX40DI SQ; +HYDR-3980 PO; +MORP4CAR IV; +ONDA4VIA23 IJ; +PANT40TA49 PO
[2023-07-05 22:59] VITALS: BP 126/76; O2SAT 97
== END 2023-07-05 22:59 | disposition home or self-care (01) ==
LOC: ER 20:03
DX: M25.551 Pain in right hip (principal); F03.90 Unspecified dementia, unspecified severity, without behavioral disturbance, psychotic disturbance, mood disturbance, and anxiety; Z79.899 Other long term (current) drug therapy; Z88.2 Allergy status to sulfonamides; W18.39XA Other fall on same level, initial encounter; Y93.89 Activity, other specified; Y92.89 Other specified places as the place of occurrence of the external cause; Y99.8 Other external cause status
CPT/HCPCS: 72220; 73502; A4606; A4663